=== PATIENT | male | born 1990 | race African-American/Black ===

== ENCOUNTER 2024-07-08 18:06 | Emergency (ER) | payer OTHER ==
[~2024-07-08] VITALS: Ht 198.1 cm; Wt 131.1 kg
[2024-07-08 18:20] VITALS: TEMP 97.9
[2024-07-08 21:09] VITALS: PULSE 77; RESP 18; O2SAT 98
== END 2024-07-08 21:15 | disposition home or self-care (01) ==
LOC: ER 18:20
DX: Z77.028 Contact with and (suspected) exposure to other hazardous aromatic compounds (principal); Y99.0 Civilian activity done for income or pay; J45.909 Unspecified asthma, uncomplicated
CPT/HCPCS: 99284